=== PATIENT | female | born 1970 | race Asian ===

== ENCOUNTER 2022-01-12 15:36 | Emergency (ER) | payer OTHER ==
[~2022-01-12] VITALS: Ht 162.6 cm; Wt 63.5 kg
[2022-01-12 15:36] VITALS: BP_SYST 128
--- NOTE | 2022-01-12 15:36 | NUR ---
BROUGHT IN BY [facility], PLACED IN ROOM #6 AND TRIAGED. REPORT GIVEN TO MAINOR
--- NOTE | 2022-01-12 15:45 | NUR ---
RECEIVED PT IN BED #6, BIBA FROM WORK AFTER HAVING A PANIC ATTACK AND SYNCOPAL EPISODE. PT IS CURRENTLY IN NAD, VSS, AAOx3, CALM, SPEAKING IN FULL SENTENCES. PT TO BE FURTHER ASSESSED BY ED MD FOR PLAN OF CARE DISPOSITION.
--- NOTE | 2022-01-12 15:50 | NUR ---
ED MD AT BEDSIDE ASSESSMENT
[2022-01-12] MEDS ORDERED: ALPRAZolam 0.25 MG TABLET PO ONE (16:00)
[2022-01-12 16:15] VITALS: BP_SYST 122
[2022-01-12 16:57] LABS: ANION GAP 12 (5-15); CALCIUM 9.3 mg/dL (8.4-11.0); CHLORIDE 101 mmol/L (98-107); CREATININE 0.85 mg/dL (0.55-1.30); GLUCOSE 99 mg/dL (70-99); POTASSIUM 4.2 mmol/L (3.5-5.1); SODIUM SERUM 141 mmol/L (136-145); UREA NITROGEN, BLOOD 17 mg/dL (8-21)
[2022-01-12 17:06] LABS: ALANINE AMINOTRANSFERASE 21 U/L (12-78); ALBUMIN 4.1 g/dL (3.4-4.8); ASPARTATE AMINOTRANSFERASE 23 U/L (10-37); TOTAL BILIRUBIN 0.5 mg/dL (0.0-1.0)
[2022-01-12 17:10] LABS: ACETAMINOPHEN < 1 ug/mL (1-30); ALCOHOL, BLOOD < 3 mg/dL (<10); BASOPHILS # (AUTO) 0.1 K/uL (0.0-0.2); BASOPHILS % (AUTO) 0.8 % (0.0-2.0); EOSINOPHILS % (AUTO) 0.5 % (0.0-4.0); GFR AFRICAN AMERICAN 90 mL/min (>90); HEMATOCRIT 40.3 % (36-48); HEMOGLOBIN 13.7 g/dL (12.0-16.0); LYMPHOCYTES # (AUTO) 1.4 K/uL (1.0-5.5); LYMPHOCYTES % (AUTO) 16.3 % (20.5-51.5); MEAN CORPUSCULAR HEMOGLOBIN 30 pg (27-31); MEAN CORPUSCULAR HGB CONC 34 % (32-36); MEAN CORPUSCULAR VOLUME 88 fL (79.0-98.0); MONOCYTES # (AUTO) 0.4 K/uL (0.0-1.0); MONOCYTES % (AUTO) 4.7 % (1.7-9.3); NEUTROPHILS # (AUTO) 6.8 K/uL (1.8-7.7); NEUTROPHILS % (AUTO) 77.7 % (40.0-70.0); PLATELET COUNT (AUTO) 284 K/uL (130-430); RED CELL DISTRIBUTION WIDTH 13.2 % (9.0-15.0); WHITE BLOOD COUNT (AUTO) 8.7 K/uL (4.8-10.8)
--- NOTE | 2022-01-12 17:23 | NUR ---
Patient given written and verbal discharge instructions and verbalizes understanding. ER MD discussed with patient the results and treatment provided. Patient in stable condition. ID arm band removed.
== END 2022-01-12 17:23 | disposition home or self-care (01) ==
LOC: SED 15:36
DX: F41.0 Panic disorder [episodic paroxysmal anxiety] (principal); F43.9 Reaction to severe stress, unspecified; Z79.899 Other long term (current) drug therapy
CPT/HCPCS: 36415; 80053; 84484; 85025; 93005; 99284; G0480; G0481; G0482